=== PATIENT | female | born 1960 | race Caucasian/White ===

== ENCOUNTER 2020-02-04 10:03 | Emergency (ER) | payer BC ==
--- NOTE | 2020-02-04 10:32 | EDM.PDOC ---
ED HPI GENERAL MEDICAL PROBLEM - General Chief Complaint: General Stated Complaint: FISH HOOK IN FINGER Time Seen by Provider: 02/04/20 10:20 Source of Information: Reports: Patient History Limitations: Reports: No Limitations - History of Present Illness INITIAL COMMENTS - FREE TEXT/NARRATIVE: This patient presents to the ED for removal of a fishhook in her right 4th digit. The incident occurred this morning. She does not recall her last tetanus booster. She denies other injuries or concerns. She denies recent illnesses including fever, cough, shortness or breath, or sore throat. Onset: Today, Sudden Onset Date: 02/04/20 Location: Reports: Upper Extremity, Left Treatments PAINTER BOTTOM: Reports: Cold Therapy ED ROS GENERAL - Review of Systems Review Of Systems: Comprehensive ROS is negative, except as noted in HPI. ED EXAM, GENERAL - Physical Exam Exam: See Below Exam Limited By: No Limitations General Appearance: Alert, No Apparent Distress Eye Exam: Bilateral Eye: PERRL Ears: Normal External Exam Nose: Normal Inspection Throat/Mouth: Normal Inspection Head: Atraumatic, Normocephalic Neck: Normal Inspection, Full Range of Motion Respiratory/Chest: No Respiratory Distress, No Accessory Muscle Use Extremities: Normal Inspection, Normal Capillary Refill, Other (left 4th digit, fish hook visible palmar surface just distal to DIP) Neurological: Alert, Oriented ED GENERAL MEDICAL PROCEDURES - Laceration/Wound Repair Left Distal Digit - 4th (Ring) Lac/wound length in cm: 0.1 (fish hook) Distal NVT: Neuro & Vascular Intact Anesthetic Type: Local Local Anesthesia - Lidocaine (Xylocaine): 1% Plain Local Anesthetic Volume: 1cc Skin Prep: Isopropyl Alcohol (Alcohol) Exploration/Debridement/Repair: Foreign Material Removed (hook pushed through and removed) Sterile Dressing Applied: Nurse Tetanus Status Addressed: Yes Complications: No Course - Vital Signs Last Recorded V/S: Last Vital Signs Temp 36.1 C 02/04/20 10:27 Pulse 70 02/04/20 10:27 Resp 16 02/04/20 10:27 BP 145/93 H 02/04/20 10:27 Pulse Ox 97 02/04/20 10:27 - Orders/Labs/Meds Orders: Active Orders 24 hr Category Date Time Status Vaccines to be Administered [RC] PER UNIT ROUTINE Care 02/04/20 11:02 Active Meds: Medications Discontinued Medications Generic Name Dose Route Start Last Admin Trade Name Fremyah PRN Reason Stop Dose Admin Diphtheria/Tetanus/Acell Pertussis 0.5 ml 02/04/20 11:01 Boostrix IM 02/04/20 11:02 .ONCE ONE Departure - Departure Time of Disposition: 11:00 Disposition: Home, Self-Care 01 Condition: Good Clinical Impression: Fish hook injury of finger - Discharge Information Referrals: PCP,None [Primary Care Provider] - Forms: ED Department Discharge Care Plan Goals: Monitor affected area for signs of infection including redness, pain and swelling. You may wash area with warm soap and water, pat dry with a towel. Keep area covered with clean dressing for 24-48 hours or when performing activities. Call the hospital if problems occur or if further care is needed. Sepsis Event Note - Evaluation Sepsis Screening Result: No Definite Risk - Focused Exam Vital Signs: Vital Signs Temp Pulse Resp BP Pulse Ox 02/04/20 10:27 36.1 C 70 16 145/93 H 97 Date Exam was Performed: 02/04/20 Time Exam was Performed: 11:04 - My Orders Last 24 Hours: My Active Orders 02/04/20 11:02 Vaccines to be Administered [RC] PER UNIT ROUTINE - Assessment/Plan Last 24 Hours: My Active Orders 02/04/20 11:02 Vaccines to be Administered [RC] PER UNIT ROUTINE
[2020-02-04] MEDS ORDERED: Bacitracin Oint 1 GM U/D Packet TOP ONE (10:50)
[2020-02-04] MEDS ORDERED: Diphtheria,Pertussis(Acell),Tetanus Vaccine 0.5 ML SDV inactive IM ONE (11:01)
== END 2020-02-04 11:19 | disposition home or self-care (01) ==
LOC: LB.ED 10:03
DX: S60.455A Superficial foreign body of left ring finger, initial encounter (principal); Z23 Encounter for immunization; W45.8XXA Other foreign body or object entering through skin, initial encounter
CPT/HCPCS: 64450; 90471; 90715; 99283; J2001; 99282